=== PATIENT | male | born 1965 | race Caucasian/White ===

== ENCOUNTER 2018-05-30 11:27 | Inpatient (IN) ==
[2018-05-30] MEDS ORDERED: ASPIRIN PO ONE (11:54)
[2018-05-30] MEDS ORDERED: SOLU-MEDROL IV ONE (11:56)
--- NOTE | 2018-05-30 12:40 | EKG Report ---
Test Performed on : 05/30/2018 11:49:45 AM Test Reason : sob Blood Pressure : / mmHG Vent. Rate : 096 BPM Atrial Rate : 096 BPM P-R Int : 116 ms QRS Dur : 088 ms QT Int : 348 ms P-R-T Axes : 078 084 045 degrees QTc Int : 439 ms Normal sinus rhythm. Normal ECG When compared with ECG of 28-MAY-2018 18:53, (Unconfirmed) Nonspecific T wave abnormality no longer evident in Inferior leads Unconfirmed Result
--- NOTE | 2018-05-30 12:46 | Diag Imaging Result Doc PS360 ---
CHEST-PORTABLE - 05/30/2018 INDICATION: sob/cp COMPARISON: None FINDINGS: The lungs are clear. Heart size is normal. No pneumothorax or pleural effusion. Stable small calcified granulomas in the lateral left lung. IMPRESSION: Negative exam. Electronically signed by Bartolo Lopes 05/30/2018 12:44 PM
[2018-05-30 13:08] LABS: BASO# 0.02 X1000 (0.0-0.2); BASO% 0.2 % (0.0-0.8); EOS# 0.15 X1000 (0.0-0.7); EOS% 1.2 % (0.0-10.0); HEMATOCRIT 29.1 % (42.0-52.0); HEMOGLOBIN 8.6 g/dL (14.0-18.0); IMM GRAN# 0.04 X1000 (0.0-0.04); IMM GRAN% 0.3 % (0.0-0.5); LYMPH# 1.12 X1000 (1.2-3.4); MCH 20.4 PG (27-31); MCHC 29.6 g/dL (33-37); MCV 69.1 FL (81-99); MONO# 1.16 X1000 (0.11-0.59); MONO% 9.3 % (1.7-9.3); MPV 9.6 FL (7.4-10.4); NEUT# 9.94 X1000 (1.4-6.5); PLT 473 X1000 (130-400); RBC 4.21 XMIL (4.7-6.1); RDW 19.6 % (11.5-14.5); WBC 12.43 X1000 (4.8-10.8)
[2018-05-30 13:29] LABS: AGAP 12; ALB/GLOB RATIO 1.3; ALBUMIN 3.6 g/dL (3.5-5.0); ALKALINE PHOSPHATASE 93 U/L (32-122); BUN 10 mg/dL (8-22); CALCIUM 8.5 mg/dL (8.8-10.2); CHLORIDE 105 mmol/L (98-107); CK PROFILE 90 U/L (24-204); COSMO 281; CREATININE 0.6 mg/dL (0.7-1.2); ESTIMATED GFR > 60; GLUCOSE 77 mg/dL (70-104); GOT 13 U/L (10-34); GPT 13 U/L (10-44); POTASSIUM 3.7 mmol/L (3.5-5.1); SODIUM 142 mmol/L (136-145); TCO2 25 mmol/L (25-35); TOTAL BILIRUBIN 0.28 mg/dL (0.20-1.00); TOTAL PROTEIN 6.4 g/dL (6.3-8.3)
--- NOTE | 2018-05-30 14:13 | PROVIDER DOCUMENTATION ---
This chart was entered by Debra Mendez Scribe, acting as scribe for Cherise Morris MD. HPI-Respiratory General - General Chief Complaint: Shortness of Breath Stated Complaint: SOB Time Seen by Provider: 05/30/18 11:46 Source: patient Allergies/Adverse Reactions: Patient Allergies Allergy/AdvReac Type Severity Reaction Status Date / Time aspirin AdvReac gi upset Verified 05/06/18 13:55 Home Medications: Home Medication List Medication Instructions Recorded Confirmed Last Taken Type Albuterol Sulfate [Albuterol 18 gm IH Q4H PRN 03/01/18 05/20/18 05/06/18 History Sulfate Hfa] Acetaminophen with Codeine 1 ea PO Q4H PRN PRN #12 tab 05/06/18 05/20/18 Unknown Rx [Tylenol with Codeine #3] Albuterol Sulfate Inhaler 2 puff INH Q6H PRN PRN #1 inhaler 05/19/18 05/20/18 Unknown Rx [Ventolin Hfa] D-Methorphan/P-Epd/Bpm [Bromfed Dm 5 ml PO Q4H PRN #120 ml 05/19/18 05/20/18 Unknown Rx Liquid] Prednisone 20 mg PO DIRECTED #18 tab 05/19/18 05/20/18 Unknown Rx Levofloxacin [Levaquin] 750 mg PO DAILY #10 tab 05/26/18 Unknown Rx Azithromycin [Zithromax Z-Kevin] 250 mg PO DIRECTED #1 pkg 05/27/18 Unknown Rx - History of Present Illness-Resp Nature of Presenting Problem: Patient is a 52 year old male who presents to the ED with shortness of breath and cough. States symptoms have gradually worsened since being in the ED last. History of COPD. States has had multiple rounds of antibiotics, steroids, nebulizers and inhalers with no relief of symptoms. Quality of Pain: reports: tightness Severity in ED: reports: mild Onset/Duration: reports: gradual Timing: reports: still present, getting worse Cough Quality/Degree: reports: moderate, productive cough Episode Frequency: occasional episodes Current Respiratory Medication Therapy: Initiated see nurses note Associated Symptoms: reports: cough, shortness of breath Similar Symptoms Previously?: Yes Recently seen or treated by another doctor?: Yes Review of Systems - Adult - REVIEW OF SYSTEMS - ADULT Constitutional: reports: no symptoms reported. denies: chills, fever, fatique Eyes: reports: no symptoms reported Ears, Nose, Mouth & Throat: reports: no symptoms reported Cardiovascular: reports: no symptoms reported. denies: chest pain, palpitations, syncope Respiratory: reports: cough, shortness of breath. denies: wheezing Gastrointestinal: reports: no symptoms reported Genitourinary: reports: no symptoms reported Musculoskeletal: reports: no symptoms reported Integumentary: reports: no symptoms reported Neurological: reports: no symptoms reported Psychiatric: reports: no symptoms reported Endocrine: reports: no symptoms reported Hematologic/Lymphatic: reports: no symptoms reported Allergic/Immunologic: reports: no symptoms reported All Other Systems: Reviewed and Negative Past History - Adult - PAST MEDICAL HISTORY-ADULT Review of Records: reports: Nursing Assessment Review, Medications Reviewed, Social history reviewed & non-contributory. Major Childhood Illnesses: reports: denies history Cardiovascular: reports: denies history Respiratory: reports: asthma, COPD, lung disease Gastrointestinal: reports: GERD, hepatitis (C) Obstetrical/Gynecological: reports: denies history Genitourinary: reports: denies history Musculoskeletal: reports: denies history Neurological: reports: denies history Psychiatric: reports: denies history Endocrine/Immune: reports: denies history, other (hepatitis C) Other Conditions: reports: denies history - PRIOR SURGERIES/PROCEDURES Surgical/Procedure History: reports: reviewed, not pertinent, orthopedic (extremity) - IMMUNIZATION STATUS Childhood Immunizations: See Nurse Assessment Flu Vaccine: See Nurse Assessment - FAMILY HISTORY Family History: reviewed, not pertinent - SOCIAL HISTORY Smoking: cigarettes, less than 1 pack/day Provider spent 3-5 mins advising pt. on dangers of tobacco.: Discussed manners to quit use, and f/u contacts for add'l counseling. Substance Use: alcohol Alcohol Use Frequency: every day Physical Exam-General - PHYSICAL EXAM-ADULT Initial Vital Signs Reviewed: Yes - CONSTITUTIONAL General Appearance: alert, mild distress. negative: anxious, lethargic - HEAD, EARS, NOSE, MOUTH & THROAT HENMT: other (dry mucous membranes). negative: moist mucous membranes, angioedema - CARDIOVASCULAR Cardiovascular: normal peripheral pulses, tachycardia - GASTROINTESTINAL (ABDOMEN) Abdominal Exam: normal bowel sounds, non tender, soft. negative: guarding, rebound - MUSCULOSKELETAL Extremity: non-tender, normal inspection. negative: erythema, swelling - SKIN Integumentary: normal color, normal turgor, warm/dry. negative: cyanosis, jaundice - PSYCHIATRIC Psych/Mental Status: normal mood/affect, oriented x 3. negative: anxious, paranoid Progress - PLAN OF CARE/RESULTS Progress/Plan/Lab Results: Vital Signs - 8 hr 05/30/18 11:29 05/30/18 11:43 05/30/18 11:50 Temperature 98.9 F Pulse Rate 112 H 103 H 99 H Respiratory Rate 30 H 27 H 30 H Blood Pressure 147/84 O2 Sat by Pulse Oximetry 95 100 100 05/30/18 12:00 Temperature Pulse Rate 98 H Respiratory Rate 26 H Blood Pressure O2 Sat by Pulse Oximetry 100 05/30/18 14:35 Stool Occult Blood (JOI) - Final Stool Laboratory Results - last 24 hr 05/30/18 05/30/18 05/30/18 12:15 12:15 12:15 WBC 12.43 H RBC 4.21 L Hgb 8.6 L Hct 29.1 L MCV 69.1 L MCH 20.4 L MCHC 29.6 L RDW Std Deviation 19.6 H Plt Count 473 H MPV 9.6 Immature Gran % (Auto) 0.3 Neut % (Auto) 80.0 H Lymph % (Auto) 9.0 L [place] % (Auto) 9.3 Eos % (Auto) 1.2 Baso % (Auto) 0.2 Immature Gran # (Auto) 0.04 Neut # (Auto) 9.94 H Lymph # (Auto) 1.12 L [place] # (Auto) 1.16 H Eos # (Auto) 0.15 Baso # (Auto) 0.02 Sodium 142 Potassium 3.7 Chloride 105 Carbon Dioxide 25 Anion Gap 12 BUN 10 Creatinine 0.6 L Estimated GFR/1.73 m2 > 60 BUN/Creatinine Ratio 17 Glucose 77 Calculated Osmolality 281 Calcium 8.5 L Total Bilirubin 0.28 AST 13 ALT 13 Alkaline Phosphatase 93 Creatine Kinase 90 Troponin T < 0.010 Total Protein 6.4 Albumin 3.6 Globulin 2.8 Albumin/Globulin Ratio 1.3 Plasma Lactate 05/30/18 12:15 WBC RBC Hgb Hct MCV MCH MCHC RDW Std Deviation Plt Count MPV Immature Gran % (Auto) Neut % (Auto) Lymph % (Auto) [place] % (Auto) Eos % (Auto) Baso % (Auto) Immature Gran # (Auto) Neut # (Auto) Lymph # (Auto) [place] # (Auto) Eos # (Auto) Baso # (Auto) Sodium Potassium Chloride Carbon Dioxide Anion Gap BUN Creatinine Estimated GFR/1.73 m2 BUN/Creatinine Ratio Glucose Calculated Osmolality Calcium Total Bilirubin AST ALT Alkaline Phosphatase Creatine Kinase Troponin T Total Protein Albumin Globulin Albumin/Globulin Ratio Plasma Lactate 1.3 Orders Category Date Time Status Cardiac Monitoring DIRECTED Care 05/30/18 11:54 Active Oxygen Therapy- ED Nursing DIRECTED Care 05/30/18 11:54 Active Saline Loc NOW Care 05/30/18 11:54 Active CHEST-PORTABLE [RAD] Stat Exams 05/30/18 11:56 Completed BLOOD CULTURE [BLDCUL] Stat Lab 05/30/18 12:15 Results CBC WITH ELECTRONIC DIFF [HEME] Stat Lab 05/30/18 12:15 Completed CK PROFILE [SP CHEM] Stat Lab 05/30/18 12:15 Completed COMPREHENSIVE METABOLIC PANEL [CHEM] Stat Lab 05/30/18 12:15 Completed LACTATE, PLASMA [CHEM] Stat Lab 05/30/18 12:15 Completed Stool [OCCULT BLOOD SCREENING] [STOOL] Stat Lab 05/30/18 14:35 Completed TROPONIN T Stat Lab 05/30/18 12:15 Completed Aspirin Med 05/30/18 11:54 Discontinued 325 mg PO NOW ONE Methylprednisolone Sod Succ [Solu-Medrol] Med 05/30/18 11:56 Discontinued 125 mg IV NOW ONE CP/SOB/Palp >45 yrs of Age Stat Oth 05/30/18 11:54 Ordered EKG [EKG] Stat Ther 05/30/18 11:54 Draft Result Diagrams: 05/30/18 12:15 05/30/18 12:15 - EKG 1 Time of EKG reading by physician:: 11:49 EKG Read and Signed by:: Cherise Morris EKG Interpretation (*Must complete 3 of following elements*): Normal Rate: 96 Rhythm: normal sinus rhythm [place]: normal QRS: normal MA Interval: normal ST Wave: normal Comments: normal ECG - XRAY 1 XRAY Study: Chest Impression: See EMR Report (Signed CHEST-PORTABLE - 05/30/2018 INDICATION: sob/cp COMPARISON: None FINDINGS: The lungs are clear. Heart size is normal. No pneumothorax or pleural effusion. Stable small calcified granulomas in the lateral left lung. IMPRESSION: Negative exam. Electronically signed by Bartolo Lopes 05/30/2018 12:44 PM 05/30/18 1244 Interpreting Physician: Bartolo Lopes MD Dictated Date/Time: 05/30/18 1244 cc: Cherise Morris MD; Luna Moon MD) - CONSULTS/PCP/HOSPITALIST Notification #1 *Consult/PCP/Hospitalist*: JEANNINE Vazquez for Hospitalist Time Discussed: 15:36 (Dr. Gonzalez accepted admit) Reason/Comments: Dr. Morris consulted with Taylor about patient. Consult Disposition: Admit Departure - Departure Date of Disposition Decision: 05/30/18 Time of Disposition Decision: 15:39 DIAGNOSIS: COPD exacerbation, Anemia Disposition: ADMITTED INPATIENT 09 Certified Medical Emergency: Emergent Condition: Stable Referrals and Follow-Ups: Luna Moon MD [Primary Care Provider] - - Critical Care Note This patient required my direct & personal management of CC.: No Attestation - Physician/ FRANK Attestation The physician spent face to face time with patient:: Yes Advanced Practice Provider documentation review:: Supervising physician onsite and consulted in the evaluation and care of this patient. The physician did have a face to face encounter with the patient. This chart was documented by the indicated scribe, (Debra Mendez, Cesar) and accurately reflects the services I performed and decisions made by me, Cherise Morris MD, as attested by the provider's signature.
--- NOTE | 2018-05-30 17:04 | HISTORY AND PHYSICAL ---
Mr. Taylor is a 52-year-old. He has no primary care physician. He presented today short of breath, coughing, fever, chills for a couple days. He says he does not have a home, he is living on [address]. He has had a productive cough. He has some pleuritic chest discomfort. PAST MEDICAL HISTORY: Extensive history of drug use and abuse I think as well as alcohol, using IV heroin, IV methamphetamine. Last admission or his admission in October he had swollen arm we felt painful right arm. He has chronic hepatitis C, COPD, chronic esophageal reflux, do not know of any surgical history. FAMILY HISTORY: He does not report any family history in past medical reports. Does not report any cardiac or renal or COPD. SOCIAL HISTORY: He has no home, living on the street. He says he quit drinking back in March but then he said he is drinking some. He smokes a pack a day. He has a history of using marijuana and cocaine and ice as often as he can. REVIEW OF SYSTEMS: He is not sure whether he has had any weight gain or loss but he does report fever and chills.Respiratory: Increased cough and increased dyspnea. Cardiovascular: He does not report any chest pain or palpitations. GI and : Has a history of chronic hepatitis C, I am not sure if it has ever been treated or addressed. He has not report any visible blood in the bowels or urine. Not complaining of abdominal pain at this time. Endocrinologic/hematologic: No know of any history. Musculoskeletal/Neurologic: No focal changes but just does not feel good in general. It is not clear to me whether he is supposed to be on oxygen or not but he apparently has not been on oxygen, not taking any of his medications. PHYSICAL EXAM: In the emergency room temperature 98.9 degrees, pulse 98, respirations 26, blood pressure 147/84. Pupils are equal. Oral and nasal mucosa is moist. Conjunctiva pink. Sclerae clear. No cervical or supraclavicular adenopathy. Carotid, radial, femoral pulses 2+ and symmetrical. LUNGS: With scattered rhonchi. He has frequent coughing sounds like a productive cough. Did not look at the sputum. CARDIOVASCULAR: Regular rhythm and rate without murmur or S3. PMI nondisplaced. ABDOMEN: Soft, nondistended. No organomegaly. NECK: Supple. No thyromegaly. I did not appreciate any sinus tenderness. EXTREMITIES: No edema. SKIN: Warm and dry. Did not see any rashes on the skin or oral nasal mucosa. LAB: White count 12,430, hematocrit 29, hemoglobin 8.6, MCV is 69. Sodium 142, potassium 3.7, chloride 105, bicarb 25, BUN 10, creatinine 0.6, blood sugar 77, AST 13, ALT was 13, total bilirubin 0.28, albumin was 3.6. Did stool for blood and it was negative. Did check a chest x- ray negative exam. Lungs are clear. Heart size normal. No pneumothorax. No pleural effusions. Stable small calcified granuloma in the lateral left lung. His lab work sodium 142, potassium 3.7, chloride 105, BUN 10, creatinine 0.6. We need to check a urine drug screen. ASSESSMENT AND PLAN: 1. Sounds like acute bronchitis, bronchial irritation, underlying chronic obstructive pulmonary disease. He is living on the street. I guess we need to probably check for atypical infections as well. My plan is to put him on ceftriaxone 1 g daily, give him some Solu- Medrol, will load him with 125 mg and will give him 60 mg IV q.8, will give duo nebs for beta agonist for bronchodilation and will put him on a steroid inhaler using Advair 250/50 one puff twice a day. I will put him on some guaifenesin ER 1200 mg twice a day to thin the mucus. 2. I am not sure what illicit drugs he is using right now and so we will check a urine drug screen, alcohol level entertaining the possibility of withdrawals or even delirium tremens. 3. Hepatitis C. We need to look at his records and see if this has ever been addressed or treated. I guess we ought to check hepatitis C viral load and do another hepatitis profile, check for B as well and we will see if any of that is going on. 4. Will kind of evaluate how he is doing with his nutrition. One of the big things is what is our discharge planning for him. He has no home and whether he will be able to find some place where he can get some care, whether he will need to pursue some rehab. I will get social workers involved. Looking at his medications at home taking Tylenol No. 3s or at least he was, he was taking azithromycin, taking Levaquin, is on prednisone 20 mg a day, so I guess we ought to check a cortisol level in the morning to see if he is adrenal suppressed, will have him on Solu-Medrol, maybe we will go ahead and draw a cortisol level now because will be having him on Solu-Medrol and just see what his cortisone level is. cc: Kvng Gonzalez MD
[2018-05-30] MEDS ORDERED: ZOFRAN IV PRN (17:35)
[2018-05-30] MEDS ORDERED: LEVAQUIN 500 MG/D5W 500 MG/100 ML IVPB IV SCH (17:35)
[2018-05-30] MEDS ORDERED: DUONEB (A & A) INH PRN (17:35)
[2018-05-30 18:29] LABS: ALLEN TEST YES; BE 0.9 mmoll (-3.0-3.0); BLOOD TYPE ARTERIAL; HCO3-(ACT) 25.6 mmoll (20.0-26.0); METHB 1.1 % (0.0-1.5); O2(CT) 12.4 mL/dL (15.0-23.0); O2HB 93.1 % (95.0-99.0); PCO2(98.6) 38 mmHg (35-45); PO2(98.6) 66 mmHg (60-100); SAMPLE BLOOD; SAO2 96.5 % (95.0-100.0); THB 9.4 g/dL (11.5-17.4); pH(98.6) 7.43 (7.35-7.45)
[2018-05-30 18:30] LABS: MODALITY ROOM AIR
[2018-05-30] MEDS: ADVAIR 250/50 DISKUS INH SCH (19:30)
[2018-05-30] MEDS: DUONEB (A & A) INH SCH ×2 (19:30→22:47)
[2018-05-30] MEDS: ROCEPHIN 1 GM in NS 50 ML IV SCH (20:35)
[2018-05-30] MEDS: SOLU-MEDROL IV SCH (20:35)
[2018-05-30] MEDS: MUCINEX PO SCH (20:35)
[2018-05-30] MEDS: DOXYCYCLINE PO SCH (20:35)
--- NOTE | 2018-05-30 20:47 | PULMONOLOGY CONSULTATION ---
DATE: 05/30/2018 REQUESTING PHYSICIAN: Dr. Gonzalez. REASON FOR CONSULTATION: 1. COPD. 2. Patient not improved in 8 emergency room visits. HISTORY OF PRESENT ILLNESS: Mr. Taylor is a 52-year-old male with COPD, ongoing tobacco use, polysubstance abuse, who has been to the emergency room 11 times this year for various reasons. The patient continues to smoke as outlined above. He blames his breathing problems on multiple different things, but not ongoing tobacco use. The patient was evaluated in the emergency room today complaining of cough and shortness of breath. He was admitted to the hospital for additional evaluation and treatment. PAST MEDICAL HISTORY: Problem list: 1. History of hepatitis C. Viral loads were checked and negative 06/20/2017 and 11/18/2017. 2. COPD, without quantification. 3. Polysubstance abuse with previous screenings revealing methamphetamines, amphetamines, cocaine, cannabinoids, barbiturates. Most recent testing done 05/28/2018 is positive for amphetamine and cannabis. He reports that people slip drugs into his food and drink. 4. History of gastroesophageal reflux disease. 5. History of right wrist infection requiring irrigation and debridement in October 2017, related to intravenous drug use. SOCIAL HISTORY: Patient continues to use multiple different drugs and tobacco as per above. He reports he is homeless. FAMILY HISTORY: Noncontributory to current presentation. REVIEW OF SYSTEMS: Reveals a well-developed, well-nourished male who gives circuitous answers to all questions asked. He has mild work of breathing. PHYSICAL EXAMINATION: Vital Signs: BP 125/66, heart rate 87, respiratory rate 26, oxygen saturation 98% on room air. HEENT: Pupils are equal and reactive. Oropharynx is clear. Neck: Supple. Chest: Reveals scattered wheezing bilaterally. Cardiac: Distant heart sounds. Normal S1, normal S2. Abdomen: Soft and without hepatosplenomegaly. Extremities: Without edema. LABORATORIES: White blood count 12.4, hemoglobin 8.6, MCV is low at 69, platelet count 473,000. Arterial blood gas: pH 7.43, pCO2 38, PO2 of 66. IMPRESSION: A 52-year-old with: 1. COPD exacerbation. 2. Ongoing tobacco use. 3. Dyspnea. 4. Progressive decrease in MCV, consistent with a progressive microcytic anemia. RECOMMENDATIONS: 1. Evaluate heart function and rule out pulmonary hypertension with an echocardiogram. 2. Obtain CT scan of the thorax to rule out endobronchial lesions to explain his progressive dyspnea, although this most likely represents a COPD exacerbation. 3. Recommend iron studies as you are doing. He may require outpatient evaluation of the GI tract. 4. Strongly encourage the patient to discontinue tobacco and drug use. 5. His long-term prognosis is poor with his ongoing drug use pattern. cc: Beau Navarro MD MTDD
--- NOTE | 2018-05-30 20:56 | Diag Imaging Result Doc PS360 ---
EXAM: CT THORAX W/CONTRAST HISTORY: dyspnea TECHNIQUE: CT chest with intravenous contrast COMPARISON: None. FINDINGS: No pleural effusions. No cardiomegaly. No thoracic aortic aneurysm or dissection. No enlarged lymph nodes. There is a left lower lobe granuloma. Prominent emphysematous changes. No consolidation. Tiny faint nonspecific nodular densities in the lower lungs IMPRESSION: 1.Severe emphysema 2.Tiny nonspecific nodular densities/infiltrates in the lower lungs This exam was performed using automated exposure control, adjustment of mA or kV according to patient size, and/or use of iterative reconstruction technique. Electronically signed by Erik Davis 05/30/2018 8:53 PM
[2018-05-30 21:27] LABS: UR AMPHETAMINES QUAL NONE DETECTED (NONE DETECT); UR BARBITUATES QUAL NONE DETECTED (NONE DETECT); UR BENZODIAZEPIN QUAL NONE DETECTED (NONE DETECT); UR CANNABINOIDS QUAL NONE DETECTED (NONE DETECT); UR COCAINE QUAL PRESUMPTIVE POSITIVE (NONE DETECT); UR METHADONE QUAL NONE DETECTED (NONE DETECT); UR OPIATES QUAL NONE DETECTED (NONE DETECT); UR OXYCODONE QUAL NONE DETECTED (NONE DETECT); UR PCP QUAL NONE DETECTED (NONE DETECT)
[2018-05-31] MEDS: SOLU-MEDROL IV SCH ×3 (03:30→22:06)
[2018-05-31] MEDS: DUONEB (A & A) INH SCH ×6 (03:30→23:35)
[2018-05-31] MEDS: PRILOSEC PO SCH (06:17)
[2018-05-31] MEDS: ADVAIR 250/50 DISKUS INH SCH ×2 (07:28→19:35)
[2018-05-31 07:46] LABS: BASO# 0.01 X1000 (0.0-0.2); BASO% 0.1 % (0.0-0.8); HEMATOCRIT 28.8 % (42.0-52.0); HEMOGLOBIN 8.5 g/dL (14.0-18.0); IMM GRAN# 0.03 X1000 (0.0-0.04); IMM GRAN% 0.3 % (0.0-0.5); LYMPH# 0.62 X1000 (1.2-3.4); LYMPH% 5.6 % (20.5-51.1); MCH 20.5 PG (27-31); MCHC 29.5 g/dL (33-37); MCV 69.4 FL (81-99); MONO# 0.19 X1000 (0.11-0.59); MONO% 1.7 % (1.7-9.3); MPV 9.6 FL (7.4-10.4); NEUT# 10.27 X1000 (1.4-6.5); NEUT% 92.3 % (42.2-75.2); PLT 476 X1000 (130-400); RBC 4.15 XMIL (4.7-6.1); RDW 20.1 % (11.5-14.5); WBC 11.12 X1000 (4.8-10.8)
[2018-05-31 08:13] LABS: AGAP 14; ALB/GLOB RATIO 1.2; ALBUMIN 3.6 g/dL (3.5-5.0); ALKALINE PHOSPHATASE 91 U/L (32-122); BUN 10 mg/dL (8-22); CALCIUM 8.7 mg/dL (8.8-10.2); CHLORIDE 104 mmol/L (98-107); COSMO 285; CREATININE 0.6 mg/dL (0.7-1.2); ESTIMATED GFR > 60; GLUCOSE 189 mg/dL (70-104); GOT 12 U/L (10-34); GPT 16 U/L (10-44); IRON SATURATION 4 %; POTASSIUM 3.5 mmol/L (3.5-5.1); SODIUM 141 mmol/L (136-145); TCO2 23 mmol/L (25-35); TIBC 312 ug/dL; TOTAL BILIRUBIN 0.15 mg/dL (0.20-1.00); TOTAL IRON 14 ug/dL (53-167); TOTAL PROTEIN 6.7 g/dL (6.3-8.3); UNBOUND IRON 298 ug/dL (112-346)
--- NOTE | 2018-05-31 08:21 | Diag Imaging Result Doc PS360 ---
EXAM: CHEST-PORTABLE HISTORY: short of breath TECHNIQUE: Chest single view COMPARISON: 05/30/2018 FINDINGS: The lungs are hyperexpanded. The heart is not enlarged. The vessels are not distended. The tiny infiltrate seen on recent CT are not identified on the plain film. No effusion identified. IMPRESSION: Emphysema Electronically signed by Erik Davis 05/31/2018 8:18 AM
[2018-05-31 08:29] LABS: FREE T4 1.32 ng/dL (0.93-1.70); TSH 0.21 uIUmL (0.27-4.20)
[2018-05-31 08:42] LABS: BANDS 6 % (0-1); LYMPHS 8 % (21-51); SEGS 86 % (42-75)
[2018-05-31 08:43] LABS: ANISOCYTOSIS 2+; HYPOCHROM 2+; POIKILOCYTOSIS 1+
[2018-05-31 08:44] LABS: SCHISTOCYTES OCCASIONAL
[2018-05-31] MEDS: MUCINEX PO SCH ×2 (09:20→22:06)
[2018-05-31] MEDS: DOXYCYCLINE PO SCH ×2 (09:20→22:07)
[2018-05-31] MEDS ORDERED: HALDOL IV PRN (14:59)
[2018-05-31] MEDS ORDERED: CYANOCOBALAMIN IM ONE (17:06)
--- NOTE | 2018-05-31 17:39 | PROGRESS NOTE ---
DATE: 05/31/2018 SUBJECTIVE: The patient is talking a mile a minute. He is very tangential in his thinking, really not sure. It is very hard to redirect. You asked him one question, and he wants to tell you about his custodial history and his drug history and how as a teenager, he was tricked into starting narcotics, taking narcotics. He may be confabulating, he may be withdrawing, difficult to say. OBJECTIVE: Vital signs: Blood pressure 121/74, heart rate of 86, respiratory rate 20, temperature 98 degrees 100% on room air. Cardiovascular: Regular rate and rhythm. Pulmonary: Bilateral breath sounds clear to auscultation. Gastrointestinal: Soft, nontender, nondistended. Bowel sounds are positive. LABORATORY DATA: White count 12, hemoglobin 8, hematocrit 29, platelets 473,000. ABG normal. Basic normal. UDS positive for cocaine, which is not surprising. PROBLEM LIST: 1. Chronic obstructive pulmonary disease (COPD)exacerbation. He has got a pretty severe COPD exacerbation. We will continue breathing treatments. I am going to wean a little bit of his steroids, although I think he still needs steroids because he is just so agitated, and I am not sure that is not encouraging his psychiatric disturbance, whatever it may be, or a combination of multiple issues. He still needs breathing treatments. He is on Levaquin and Rocephin; I am not sure if he needs both of those antibiotics. I think we probably can just leave him on the Rocephin. The Levaquin, the only reason I would be concerned about continuing that is because he is confused. Sometimes that has caused some confusion in patients, but typically more elderly patients. 2. Hepatitis C. I think he has had a hepatitis C test. His last hepatitis C viral load was in 2018 and was negative so I do not think he has got active hepatitis C. Now, he will always have positive hepatitis C antibody because of his history, but his hepatitis C DNA PCR was negative, and that was checked in May and October 2017 so I do not think we need to repeat that. Of course, he is still likely using IV drugs or illicit substances. He was positive for cocaine this admission. We will follow. 3. B12 deficiency. We will load him with B12 and start that. 4. I think he is also folate deficient so we will supplement that and follow. 5. He also says he had a melenic stool, so we are going to monitor for that. I do not see that this has been completed yet, so we will continue to monitor. DISPOSITION: Pending clinical status. cc: Tylor Mulligan MD
[2018-05-31] MEDS: SYMBICORT 160/4.5 MICROGM INHALER INH SCH (19:35)
[2018-05-31] MEDS: ROCEPHIN 1 GM in NS 50 ML IV SCH (20:07)
--- NOTE | 2018-05-31 20:15 | PULMONOLOGY PROGRESS NOTE ---
DATE: 05/31/2018 SUBJECTIVE: The patient's speech is slightly pressured, but he appears a little more calm than yesterday. He reports his breathing has slightly improved. OBJECTIVE: Vital Signs: The patient has been afebrile for the last 24 hours. Blood pressure 121/74, heart rate 86, respiratory rate 16, oxygen saturation 100%. HEENT: Pupils are equal and reactive. Oropharynx is clear. Neck: Is supple. Chest: Reveals wheezing on forced exhalation. Cardiac: S1-S2. Abdomen: Is soft and without hepatosplenomegaly. Extremities: Without edema. LABORATORIES: CT scan of the thorax reveals diffuse bilateral emphysema with tiny nonspecific nodular densities in the lung bases. Toxicology is positive for cocaine. Sodium 141, potassium 3.5, chloride 104, bicarbonate 23, BUN 10, creatinine 0.6. Vitamin B12 162. TSH is low with a normal free T4. IMPRESSION: A 52-year-old with 1. Chronic obstructive pulmonary disease. 2. Ongoing tobacco use. 3. Microcytic anemia. 4. B12 deficiency which is not typical for microcytic anemia. 5. Dyspnea. 6. Possible component of john. RECOMMENDATIONS: 1. Continue current antibiotic and steroid regimen. 2. Agree with B12 replacement. 3. Encourage smoking cessation. cc: Beau Navarro MD
[2018-06-01] MEDS: DUONEB (A & A) INH SCH ×6 (03:39→23:27)
[2018-06-01] MEDS: SOLU-MEDROL IV SCH ×3 (06:02→21:11)
[2018-06-01] MEDS: PRILOSEC PO SCH (06:02)
[2018-06-01 07:02] LABS: BASO# 0.02 X1000 (0.0-0.2); BASO% 0.1 % (0.0-0.8); HEMATOCRIT 29.8 % (42.0-52.0); HEMOGLOBIN 8.8 g/dL (14.0-18.0); IMM GRAN# 0.26 X1000 (0.0-0.04); IMM GRAN% 1.5 % (0.0-0.5); LYMPH# 1.17 X1000 (1.2-3.4); LYMPH% 6.6 % (20.5-51.1); MCH 20.3 PG (27-31); MCHC 29.5 g/dL (33-37); MCV 68.8 FL (81-99); MONO# 0.86 X1000 (0.11-0.59); MONO% 4.8 % (1.7-9.3); MPV 9.7 FL (7.4-10.4); NEUT# 15.55 X1000 (1.4-6.5); PLT 591 X1000 (130-400); RBC 4.33 XMIL (4.7-6.1); RDW 20.7 % (11.5-14.5); WBC 17.86 X1000 (4.8-10.8)
[2018-06-01] MEDS: ADVAIR 250/50 DISKUS INH SCH ×2 (07:10→19:44)
[2018-06-01] MEDS: SYMBICORT 160/4.5 MICROGM INHALER INH SCH ×2 (07:17→19:44)
[2018-06-01 07:32] LABS: BANDS 4 % (0-1); LYMPHS 4 % (21-51); MONO 2 % (1-9)
[2018-06-01 07:39] LABS: ANISOCYTOSIS 2+; HYPOCHROM 2+; MYELOCYTES 2 %; SEGS 88 % (42-75)
[2018-06-01 07:40] LABS: MICROCYTOSIS 2+; POIKILOCYTOSIS 2+
[2018-06-01 07:44] LABS: ALB/GLOB RATIO 1.5; ALBUMIN 3.8 g/dL (3.5-5.0); ALKALINE PHOSPHATASE 99 U/L (32-122); GOT 9 U/L (10-34); GPT 15 U/L (10-44); TOTAL PROTEIN 6.3 g/dL (6.3-8.3)
[2018-06-01 07:49] LABS: DIRECT BILIRUBIN < 0.10 mg/dL (0.00-0.20); TOTAL BILIRUBIN < 0.15 mg/dL (0.20-1.00)
[2018-06-01] MEDS: MUCINEX PO SCH ×2 (09:36→21:20)
[2018-06-01] MEDS: DOXYCYCLINE PO SCH ×2 (09:36→21:20)
[2018-06-01] MEDS: VITAMIN B-12 PO SCH (09:36)
[2018-06-01 14:49] LABS: HEPATITIS PROFILE ACUTE SEE COMMENTS
--- NOTE | 2018-06-01 16:20 | ECHO REPORT ---
ORDER DATE: 05/31/2018 INTERPRETING PHYSICIAN: Roberto Woods MD ECHOCARDIOGRAPHIC MEASUREMENTS: Interventricular septum 0.9 cm. Left ventricular posterior wall 0.9 cm. Diastolic diameter 5.0 cm. Left ventricular systolic diameter 2.8 cm. Left atrium 3.1 cm. Aorta 3 cm. SUMMARY OF THE 2-DIMENSIONAL IMAGING: Aortic valve leaflets were trileaflet. Pulmonic valve was normal. Tricuspid valve was normal. Mitral valve was normal. Normal left ventricular cavity size. Estimated ejection fraction of 70%. There is trace to mild mitral regurgitation. Mild tricuspid regurgitation. Peak velocity across the tricuspid valve was 2.9 m/sec. Pulmonary artery systolic pressure of 44 mmHg. Peak velocity across the aortic valve less than 2 m/sec. By Doppler studies, there is no aortic stenosis or regurgitation. There is no pericardial effusion. No obvious intracardiac mass or thrombus seen. cc: MD Beau Alfaro MD
--- NOTE | 2018-06-01 19:43 | PULMONOLOGY PROGRESS NOTE ---
DATE: 06/01/2018 SUBJECTIVE: The patient reports ongoing shortness of breath. OBJECTIVE: Vital Signs: The patient has been afebrile for the last 24 hours. Blood pressure 129/66, heart rate 107, respiratory rate 17, oxygen saturation 98%. HEENT: Pupils are equal and reactive. Oropharynx is clear. Neck: Supple. Chest: Scattered wheezing bilaterally. Cardiac: S1, S2. Abdomen: Scaphoid and soft. Extremities: Without edema. IMPRESSION: The patient is a 52-year-old with: 1. Chronic obstructive pulmonary disease exacerbation. 2. Ongoing tobacco use, along with polysubstance abuse. 3. Microcytic anemia. 4. B12 deficiency. 5. Dyspnea. RECOMMENDATIONS: 1. Continue steroids, antibiotics, and nebulizer regimen. 2. Smoking cessation has been discussed and recommended. cc: Beau Navarro MD
[2018-06-01] MEDS: ROCEPHIN 1 GM in NS 50 ML IV SCH (20:50)
--- NOTE | 2018-06-01 22:55 | PROGRESS NOTE ---
DATE: 06/01/2018 SUBJECTIVE: The patient states that he is still having shortness of breath. Denies any chest pain or palpitations. Denies any fevers or chills currently. OBJECTIVE: He is afebrile. Temperature 97.9 degrees, pulse 91, respiratory 20, BP 127/88. General: The patient is awake, alert, in minimal respiratory distress. HEENT: Normocephalic. Neck supple. CV: Regular rate. No murmurs. Chest: Diffuse wheezing throughout. Mildly labored. Abdomen is soft, nondistended. Extremities: Moves all extremities. ASSESSMENT: 1. Chronic obstructive pulmonary disease with exacerbation. 2. History of hepatitis C. 3. Cocaine-positive urine drug screen. 4. B12 deficiency. 5. Leukocytosis. PLAN: The patient's white count actually went from 12 to 17. Certainly this could be due to the Solu-Medrol. Clinically overall he does appear to be improving. The patient states that he is breathing better. We will continue Rocephin and doxycycline. We will decrease Solu-Medrol to 40 IV q.8 and will follow. cc: Tyrone Moreno MD
[2018-06-02] MEDS: DUONEB (A & A) INH SCH ×6 (03:41→23:58)
[2018-06-02] MEDS: SOLU-MEDROL IV SCH ×2 (06:11→13:47)
[2018-06-02] MEDS: PRILOSEC PO SCH (06:11)
[2018-06-02] MEDS: SYMBICORT 160/4.5 MICROGM INHALER INH SCH ×2 (08:16→20:02)
[2018-06-02] MEDS: ADVAIR 250/50 DISKUS INH SCH ×2 (08:16→20:02)
[2018-06-02] MEDS: VITAMIN B-12 PO SCH (09:11)
[2018-06-02] MEDS: DOXYCYCLINE PO SCH ×2 (09:11→22:28)
[2018-06-02] MEDS: MUCINEX PO SCH ×2 (09:11→22:28)
[2018-06-02 11:34] LABS: BASO# 0.08 X1000 (0.0-0.2); BASO% 0.4 % (0.0-0.8); HEMATOCRIT 31.2 % (42.0-52.0); HEMOGLOBIN 9.3 g/dL (14.0-18.0); IMM GRAN# 0.82 X1000 (0.0-0.04); IMM GRAN% 4.2 % (0.0-0.5); LYMPH# 1.17 X1000 (1.2-3.4); LYMPH% 5.9 % (20.5-51.1); MCH 20.4 PG (27-31); MCHC 29.8 g/dL (33-37); MCV 68.4 FL (81-99); MONO# 1.47 X1000 (0.11-0.59); MONO% 7.4 % (1.7-9.3); MPV 9.2 FL (7.4-10.4); NEUT% 82.1 % (42.2-75.2); PLT 621 X1000 (130-400); RBC 4.56 XMIL (4.7-6.1); RDW 20.6 % (11.5-14.5); WBC 19.74 X1000 (4.8-10.8)
[2018-06-02 11:41] LABS: LYMPHS 7 % (21-51); SEGS 92 % (42-75)
[2018-06-02 11:42] LABS: AGAP 13; BUN 16 mg/dL (8-22); CALCIUM 9.2 mg/dL (8.8-10.2); CHLORIDE 107 mmol/L (98-107); COSMO 290; CREATININE 0.7 mg/dL (0.7-1.2); ESTIMATED GFR > 60; GLUCOSE 128 mg/dL (70-104); PHOSPHORUS 3.7 mg/dL (2.7-4.5); POTASSIUM 4.1 mmol/L (3.5-5.1); SODIUM 144 mmol/L (136-145); TCO2 24 mmol/L (25-35)
[2018-06-02 11:47] LABS: ANISOCYTOSIS 1+; MICROCYTOSIS 1+; SCHISTOCYTES OCCASIONAL; TARGET CELLS OCCASIONAL
[2018-06-02 11:48] LABS: OVALOCYTES 1+
[2018-06-02 11:49] LABS: POIKILOCYTOSIS 2+
[2018-06-02] MEDS: TYLENOL WITH CODEINE #3 PO PRN ×2 (12:39→21:23)
--- NOTE | 2018-06-02 22:20 | PROGRESS NOTE ---
DATE: 06/02/2018 INTERVAL HISTORY: I talked with the patient's primary care doctor on the phone who patient had seen once in the last 1 month, and he has established new primary care provider. Apparently, patient called primary care doctor's office in the morning time, and he sounded very frustrated, and he informed the primary care provider's office that he would want to shoot himself down because he was really frustrated. This was something that was conveyed to me by the primary care doctor on the phone. The patient is also having Braydon Luevano consult pending. Currently, the patient denies any chest pain. His shortness of breath is significantly better. He is very hyperoral, anxious, agitated and he has continuous thought process, and he is hyperverbal. OBJECTIVE: Vital signs: Currently vitals suggest temperature 98.1 degrees, pulse 106, respiratory rate 19, blood pressure 130/78, saturating 98% on 2 L nasal cannula. General: Not in any acute distress; however, he is very anxious and agitated. HEENT: Oral cavity is moist. Lungs: Air entry bilaterally equal. No wheeze, rhonchi or crackles. Cardiovascular: S1, S2 normal. No murmur or gallop. Abdomen: Soft, nontender. Extremities: No lower extremity edema. Neurologic: He is alert and oriented x3. Psychiatric: Evaluation is positive for tangentiality of thought process. His mood is labile, and he becomes angry and aggressive very frequently. He denies any hallucinations, suicidal or homicidal ideations. He says he never had thoughts of suicide or homicide even in the morning. He was just frustrated with his social situation. He does demonstrate repetitive behavior where he tries to read up some things on the papers. According to his nursing staff, he did have some delusions as well. LABORATORY DATA: Suggestive of leukocytosis, microcytic anemia, thrombocytosis. His electrolytes are unremarkable. Fecal occult blood test was negative. ASSESSMENT AND PLAN: 1. Acute chronic obstructive pulmonary disease exacerbation. 2. Chronic hepatitis C. 3. Cocaine abuse. 4. Vitamin B12 deficiency. 5. Iron deficiency. PLAN: Continue patient on intravenous ceftriaxone and p.o. doxycycline and methylprednisolone. I will try to taper dose to 40 mg of IV every 12 hours. He does have labile mood and mood swings with aggressive behavior. I will consult Braydon Luevano as I think he would be ready for potential discharge on p.o. steroids tomorrow. I will start him on iron supplementation for iron deficiency. Plan of care discussed with the patient. All of his questions have been answered. cc: Jose Gusman MD MTDD
[2018-06-02] MEDS: ROCEPHIN 1 GM in NS 50 ML IV SCH (22:27)
[2018-06-03] MEDS ORDERED: SOLU-MEDROL IV SCH (02:00)
[2018-06-03] MEDS: DUONEB (A & A) INH SCH ×2 (04:40→07:30)
[2018-06-03] MEDS: PRILOSEC PO SCH (06:08)
[2018-06-03 07:12] VITALS: BP 133/88
[2018-06-03] MEDS: SYMBICORT 160/4.5 MICROGM INHALER INH SCH (07:30)
[2018-06-03] MEDS: ADVAIR 250/50 DISKUS INH SCH (07:30)
[2018-06-03] MEDS ORDERED: ICAR-C PO SCH (09:00)
[2018-06-03 10:25] LABS: HCV BY PCR SEE COMMENTS
--- NOTE | 2018-06-04 12:37 | DISCHARGE SUMMARY ---
ADMISSION DATE: 05/30/2018 DISCHARGE DATE: 06/03/2018 DISPOSITION: The patient left and eloped. I could not see this patient on 06/03/18. DISCHARGE DIAGNOSES: 1. Acute chronic obstructive pulmonary disease exacerbation. 2. Chronic hepatitis C. 3. Cocaine abuse. 4. Vitamin B 12 deficiency. 5. Iron deficiency. 6. Severe anxiety and mood disorder with anger outburst OTHER DIAGNOSES: 1. Past history of intravenous drug use. 2. Past history of polysubstance use, including alcohol, methamphetamine. 3. Past history of chronic hepatitis C. 4. Past history of chronic obstructive pulmonary disease, chronic gastroesophageal reflux disease. PHYSICAL EXAMINATION: Vitals: As documented in the chart at 7 a.m. before elopement had a temperature of 98.4 degrees, pulse 100, respiratory rate 19, blood pressure 130/88, saturating 97% on room air. General: I could not perform physical examination. MEDICATION: During hospital admission, he was receiving intravenous steroids, albuterol ipratropium nebulization, p.o. doxycycline and intravenous ceftriaxone. SIGNIFICANT IMAGING DURING HOSPITALIZATION AND LABS: He had leukocytosis of 19,000, hemoglobin of 9.3, platelet of 621. He did have significant microcytosis. He had normal electrolytes and normal kidney function. IMAGING: During hospital admission, chest CT on June 02 had severe emphysema, tiny nonspecific nodular densities or infiltrates in the lower lungs. Echocardiogram had suggested ejection fraction of 70% without any obvious intracardiac mass or thrombus. HOSPITAL COURSE SUMMARY: Mr. Taylor is a 52-year-old man who was previously incarcerated and had history of polysubstance abuse and repeated ER visits. He came in with chief complaints of shortness of breath, cough, fever, chills for about 2 days duration. He states that he was homeless and he was living on the street. He also had pleuritic chest pain with expectoration. He was admitted for acute COPD exacerbation and was started on intravenous steroids and intravenous antibiotics. During hospital admission, his breathing status had improved and the plan was to change his intravenous steroids to p.o. steroids. He was continued on intravenous antibiotics. He was saturating well on room air. During hospital admission, he has had episodes of agitation, anxiety, and he was not complying with nursing care. He was also hyper oral. At one time, he called his primary care doctor's office and had expressed that he wanted to shoot himself down. However, on my evaluation, he denies any hallucination, suicidal or homicidal ideation. Considering patient's labile mood, Braydon Luevano consult was planned. However, on 06/03/2018 morning time, the patient eloped. It looks like he did not remove his IV line. He had unattached nuclear monitoring technician. TIME SPENT: Less than 30 minutes were spent in discharging this patient. cc: MD LORNA Boston
== END 2018-06-03 08:50 | disposition left against medical advice (07) | DRG 191 ==
LOC: ED 11:27 → SUATTDRO 16:58 → 3N 16:58
PROVIDERS: ATTEND Internal Medicine
CPT/HCPCS: 71010; 71045; 71260; 80048; 80053; 80074; 80076; 80101; 80301; 80307; 80324; 80345; 80346; 80353; 80358; 80361; 80365; 82270; 82272; 82533; 82550; 82607; 82728; 82746; 82805; 83540; 83550; 83605; 83735; 83992; 84100; 84439; 84443; 84484; 85025; 87040; 87522; 93005; 93306; 94640; 94761; 94799; 96374; 99285; A9270; G0431; G0434; G0479; G0480; J0696; J1956; J2920; J2930; J3420; Q9967

== ENCOUNTER 2018-10-14 20:42 | Inpatient (IN) ==
[2018-10-14] MEDS ORDERED: NS + KCL 20 MEQ 1,000 ML IV SCH (23:48)
--- NOTE | 2018-10-15 00:07 | HISTORY AND PHYSICAL ---
PRIMARY CARE PHYSICIAN: Dr. Moon. CHIEF COMPLAINT: Fall. HISTORY OF PRESENTING ILLNESS: A 53-year-old male with a history of asthma, COPD, hep C who, apparently, was going up a tree to get the ball that had gone up there. Somehow the limb broke and he fell down. He developed moderate amount of pain in his right hip region. He was brought to [facility]. His case was discussed with Orthopedics here, who recommended transfer for further treatment. At the time of my examination, patient had denied any headache, fever, chills, chest pain, shortness of breath, or weight changes, but complained of right hip pain. PAST MEDICAL HISTORY: Includes asthma, COPD, hepatitis C. PAST SURGICAL HISTORY: Right wrist surgery. ALLERGIES: Aspirin. CURRENT MEDICATIONS: He does not recall. Nursing staff will reconcile. SOCIAL HISTORY: A [id number] history of smoking. Admits to social alcohol use. Admits to illicit drugs, including marijuana and methamphetamine. FAMILY HISTORY: Positive for coronary artery disease in Mother and Father. REVIEW OF SYSTEMS: Fourteen-point review of system is as in HPI. Other systems negative. PHYSICAL EXAMINATION: GENERAL: Cooperative, friendly male. He is resting more comfortably now. VITAL SIGNS: Temperature 97.8 degrees, pulse 66, respiration 16, blood pressure 115/79. HEENT: Extraocular movements intact. PERRLA. NECK: No masses. CHEST: Scattered wheezes. CARDIOVASCULAR: Regular rate and rhythm. ABDOMEN: Soft. Positive bowel sounds. EXTREMITIES: Right hip tenderness. NEUROLOGIC: He is awake, alert, oriented x3. GENITOURINARY: No bladder distention. SKIN: Warm. LABORATORIES AND STUDIES: X-ray shows right femoral neck fracture. Sodium 136, potassium 2.7, chloride 98, CO2 is 23, BUN is 6, creatinine 0.7. Glucose 97. WBCs 5.2, hemoglobin 12, hematocrit 37.1, platelets 268,000. ASSESSMENT: This is a 53-year-old male with a history of asthma, chronic obstructive pulmonary disease, hepatitis C, who had presented to emergency department after he had a fall. Apparently, patient was going up a tree to fetch a ball that had gone up there, some how the limb broke any he landed on the ground. He was brought to [facility], where he had imaging done which did show a right femoral neck fracture. Due to lack of subspecialists care there, his case was discussed with Orthopedics here, who recommended transfer for further treatment. 1. Right femoral neck fracture. 2. Hypokalemia. 3. Chronic obstructive pulmonary disease. 4. Hepatitis C. PLAN: 1. We will admit patient to medical floor with telemetry. 2. We will keep patient NPO and give him medical pain control. 3. We will consult Orthopedics. 4. We will replace his potassium. Monitor his electrolytes. 5. Continue gentle hydration. 6. We will continue DuoNebs p.r.n. 7. We will obtain records regarding his hepatitis C. 8. Put patient on DVT prophylaxis, sequential compression devises. 9. Continue to follow and reassess, make further recommendation based on patient's clinical course. cc: Darryl Yanez MD MTDD
[2018-10-15] MEDS: ZOFRAN IV PRN ×3 (01:49→23:55)
[2018-10-15] MEDS: MORPHINE IV PRN ×2 (01:50→05:50)
[2018-10-15 06:06] LABS: BASO# 0.02 X1000 (0.0-0.2); BASO% 0.2 % (0.0-0.8); EOS# 0.11 X1000 (0.0-0.7); EOS% 1.3 % (0.0-10.0); HEMATOCRIT 39.9 % (42.0-52.0); HEMOGLOBIN 12.9 g/dL (14.0-18.0); IMM GRAN# 0.03 X1000 (0.0-0.04); IMM GRAN% 0.4 % (0.0-0.5); LYMPH# 0.85 X1000 (1.2-3.4); LYMPH% 10.2 % (20.5-51.1); MCH 25.7 PG (27-31); MCHC 32.3 g/dL (33-37); MCV 79.6 FL (81-99); MONO# 0.53 X1000 (0.11-0.59); MONO% 6.3 % (1.7-9.3); MPV 10.2 FL (7.4-10.4); NEUT# 6.82 X1000 (1.4-6.5); NEUT% 81.6 % (42.2-75.2); PLT 242 X1000 (130-400); RBC 5.01 XMIL (4.7-6.1); RDW 20.5 % (11.5-14.5); WBC 8.36 X1000 (4.8-10.8)
[2018-10-15 06:31] LABS: AGAP 10; BUN 7 mg/dL (8-22); CALCIUM 8.3 mg/dL (8.8-10.2); CHLORIDE 102 mmol/L (98-107); COSMO 272; CREATININE 0.6 mg/dL (0.7-1.2); ESTIMATED GFR > 60; GLUCOSE 102 mg/dL (70-104); POTASSIUM 3.2 mmol/L (3.5-5.1); SODIUM 137 mmol/L (136-145); TCO2 25 mmol/L (25-35)
--- NOTE | 2018-10-15 06:46 | Diag Imaging Result Doc PS360 ---
EXAM: PELVIS HISTORY: Hip fracture TECHNIQUE: Pelvis single view COMPARISON: None. FINDINGS: There is a right femoral neck fracture. The femoral head remains in the acetabulum. Femoral shaft is rotated. IMPRESSION: Right femoral neck fracture. Electronically signed by Erik Davis 10/15/2018 6:44 AM
--- NOTE | 2018-10-15 06:48 | Diag Imaging Result Doc PS360 ---
EXAM: HIP 1 VIEW RIGHT HISTORY: Hip fracture TECHNIQUE: Right hip, two views COMPARISON: None. FINDINGS: There is an oblique fracture through the right femoral neck. Femoral shaft is rotated and superiorly placed. The femoral head remains in the acetabulum. IMPRESSION: Right femoral neck fracture. Electronically signed by Erik Davis 10/15/2018 6:46 AM
--- NOTE | 2018-10-15 06:50 | Diag Imaging Result Doc PS360 ---
EXAM: CHEST-1 VIEW HISTORY: pre-op TECHNIQUE: Chest single view COMPARISON: 09/01/2018 FINDINGS: The lungs are hyperexpanded the heart is not enlarged. The vessels are minimally distended. There are no infiltrates. No effusion identified. IMPRESSION: Mild vascular distention. Electronically signed by Erik Davis 10/15/2018 6:48 AM
[2018-10-15] MEDS ORDERED: DILAUDID IV ONE (07:22)
[2018-10-15] MEDS: DUONEB (A & A) INH PRN ×2 (07:38→11:16)
[2018-10-15] MEDS ORDERED: KLOR-CON PO SCH (10:45)
--- NOTE | 2018-10-15 12:24 | PROGRESS NOTE ---
DATE: 10/15/2018 INTERVAL HISTORY: Mr. Taylor was admitted overnight after he fell down from a branch of tree and had right-sided femoral neck fracture. SUBJECTIVE: He denies any complaints except pain at the right hip joint and right groin. He states he lives with his friend. He states he does not take any medicines at home. VITAL SIGNS: Currently, temperature 99.2 degrees, pulse 73, respiratory 22, blood pressure 100/73 saturating 97% on room air. PHYSICAL EXAMINATION: General: He is hungry, not in any acute distress, HEENT: Oral cavity is moist. Lungs: Air entry bilaterally equal. No wheeze, rhonchi, crackles, except mild end- expiratory wheezes. Cardiovascular: S1, S2 normal. No murmur, rub, or gallop. Abdomen: Soft, nontender. Extremities: His right lower extremity is shorter than left and slightly externally rotated. There is localized tenderness of the right groin region. His dorsalis pedis, posterior tibial pulses are intact. He is able to wiggle toes bilaterally. He has adequate capillary refilling. Neurologic: He is alert and oriented x3. LABORATORY DATA: Suggestive of microcytic anemia. Normal platelet count. Hypokalemia. IMAGING: Previously, hip x-ray had suggested right femoral neck displaced fracture. Chest x-ray had mild vascular distention. ASSESSMENT AND PLAN: 1. Right femoral neck displaced fracture. Continue pain management as per Orthopedic Surgery team recommendation for planned repair likely early next week. Continue MiraLAX to avoid constipation. 2. Hypokalemia. Currently being repleted. I will follow up with basic metabolic panel. 3. History of iron deficiency and vitamin B12 deficiency, anemia. Follow up daily blood counts and start him on iron and vitamin B12 supplementation. 4. Chronic obstructive pulmonary disease. Continue albuterol ipratropium nebulization and add budesonide formoterol. He is not in any acute exacerbation. 5. He does have prior history of chronic hepatitis C, prior history of intravenous drug use, polysubstance abuse, and chronic gastroesophageal reflux disease. 6. Disposition. I will continue to monitor patient inside the hospital. Plan of care discussed with him. His questions have been answered. cc: Jose Gusman MD
[2018-10-15] MEDS: DILAUDID IV PRN ×3 (12:44→23:54)
--- NOTE | 2018-10-15 14:28 | ORTHOPAEDICS CONSULTATION ---
DATE: 10/15/2018 CHIEF COMPLAINT: Right hip pain. HISTORY OF PRESENT ILLNESS: Patient is a 53-year-old male who is 1 day status post fall from a tree injuring his right hip. States that he went up the tree to get a ball and the limb broke fell to the ground developed pain, discomfort his right hip. He underwent evaluation [facility]. X-rays were obtained revealed right displaced femoral neck fracture. He subsequently transferred to [facility] for orthopedic evaluation. He denies loss of conscious. The patient does have some chronic underlying medical problems with asthma, COPD and hepatitis C. ALLERGIES: Aspirin. PAST MEDICAL HISTORY: Asthma, COPD, hepatitis C . PAST SURGICAL HISTORY: Irrigation debridement right wrist and right 5th finger. PHYSICAL EXAMINATION: Patient is awake, alert, cooperative with exam. His bilateral upper extremities have no significant tenderness to palpation, able actively elevate his arms, no significant discomfort range of motion shoulder, elbow, wrist . His left lower extremity has no palpable deformity on the hip, knee or ankle. His compartments are soft. Does have significant discomfort in the right hip pain with any gentle movement. Calf is soft. He has active dorsiflexion plantar flexion. X-rays did reveal right displaced femoral neck fracture. IMPRESSION: Right displaced femoral neck fracture. PLAN: At this point discussed treatment options with the patient. At this time, given the amount displacement, the patient would most benefit long-term with a total hip arthroplasty. All his questions were answered. He agrees to treatment plan. Will plan on total hip arthroplasty per Dr. Bautista on Wednesday. Risks, benefits discussed including risks anesthesia, , bleeding, infection, failure relieve pain, postop stiffness, nerve injury, blood clots, a dislocation and other imponderables. All questions were answered. cc: Jose Ray MD [facility]
[2018-10-15] MEDS: OXY IR PO PRN (15:10)
[2018-10-15] MEDS: DUONEB (A & A) INH SCH ×2 (16:00→19:44)
[2018-10-15] MEDS: VITAMIN B-12 PO SCH (16:13)
[2018-10-15] MEDS: FERROUS SULFATE PO SCH (16:13)
[2018-10-15] MEDS: KLOR-CON PO SCH ×2 (16:13→23:58)
[2018-10-15] MEDS: SYMBICORT 80/4.5 MICROGM INHALER INH SCH (19:44)
[2018-10-15] MEDS ORDERED: LOVENOX SUBQ ONE (22:00)
[2018-10-16] MEDS: DILAUDID IV PRN ×3 (03:49→18:02)
[2018-10-16] MEDS: ZOFRAN IV PRN (03:49)
[2018-10-16] MEDS: OXY IR PO PRN ×3 (05:00→20:04)
[2018-10-16 06:43] LABS: AGAP 11; BUN 8 mg/dL (8-22); CALCIUM 8.7 mg/dL (8.8-10.2); CHLORIDE 97 mmol/L (98-107); COSMO 267; CREATININE 0.6 mg/dL (0.7-1.2); ESTIMATED GFR > 60; GLUCOSE 142 mg/dL (70-104); POTASSIUM 3.9 mmol/L (3.5-5.1); SODIUM 133 mmol/L (136-145); TCO2 25 mmol/L (25-35)
[2018-10-16] MEDS: SYMBICORT 80/4.5 MICROGM INHALER INH SCH ×2 (07:30→19:45)
[2018-10-16] MEDS: DUONEB (A & A) INH SCH ×4 (07:30→19:45)
[2018-10-16] MEDS: FERROUS SULFATE PO SCH (08:11)
[2018-10-16] MEDS: VITAMIN B-12 PO SCH (08:11)
[2018-10-16] MEDS: MIRALAX PO SCH (08:12)
--- NOTE | 2018-10-16 08:32 | ORTHOPAEDICS PROGRESS NOTE ---
DATE: 10/16/2018 SUBJECTIVE: Patient is a pleasant, 53-year-old male who is 2 days status post a fall from a tree, sustaining a right displaced femoral neck fracture. He is currently resting comfortably. PHYSICAL EXAMINATION: The patient's right lower extremity has expected tenderness to palpation on the hip, tenderness with gentle movement. His calf is soft. He has active dorsiflexion and plantar flexion. LABORATORY DATA: His hemoglobin is 12.4. IMPRESSION: Right displaced femoral neck fracture. PLAN: At this point, we will plan on proceeding with a right total hip arthroplasty tomorrow per Dr. Bautista. Risks and benefits of surgery were explained including the risks of anesthesia, , bleeding, infection, failure to relieve pain, postop stiffness, dislocation, and other imponderables. All questions were answered. The patient agrees to the treatment plan. cc: Jose Ray MD
--- NOTE | 2018-10-16 15:22 | PROGRESS NOTE ---
DATE: 10/16/2018 INTERVAL HISTORY: No acute events overnight. He is eating his meal. He complains of some right- sided thigh pain but denies any new complaints. He states he lives with his friend in an apartment. VITALS: Currently, temperature 98.6 degrees, pulse 97, respiratory rate 20, blood pressure 110/71. He is saturating 90 to 95% on 2 L nasal cannula. PHYSICAL EXAMINATION: General: Does not appear in any acute distress. Oral cavity is moist. When he clears his throat, his air entry becomes bilaterally equal. No rhonchi or crackles. Mild end-expiratory wheezes. S1, S2 normal. No murmur, rub, or gallop. Abdomen: Soft, nontender. No lower extremity edema. He is able to wiggle both of his toes. There is localized right hip joint tenderness. ASSESSMENT AND PLAN: 1. Right femoral neck displaced fracture. Continue pain management as per orthopedic surgery team, enoxaparin for deep venous thrombosis prophylaxis, MiraLAX to avoid constipation. 2. Hypokalemia, now repleted. 3. History of iron and vitamin B12 deficiency anemia. Continue iron, vitamin B12 supplementation. 4. History of chronic obstructive pulmonary disease. Continue albuterol ipratropium nebulization and budesonide formoterol inhaler. He does have mild wheezing on examination but does not appear in any acute distress. 5. He does have prior history of chronic hepatitis C, prior history of intravenous drug use, polysubstance abuse, and chronic gastroesophageal reflux disease for which I will keep him on famotidine. 6. Disposition. Continue to monitor inside the hospital. Awaiting orthopedic surgery on Wednesday. Plan of care discussed with him. His questions have been answered. cc: Jose Gusman MD
[2018-10-16] MEDS: LOVENOX SUBQ SCH (18:08)
[2018-10-16] MEDS: PEPCID PO SCH (18:08)
[2018-10-17] MEDS: DILAUDID IV PRN ×2 (05:04→09:10)
[2018-10-17] MEDS: ZOFRAN IV PRN (05:04)
[2018-10-17 06:04] LABS: AGAP 8; BUN 8 mg/dL (8-22); CALCIUM 7.9 mg/dL (8.8-10.2); CHLORIDE 95 mmol/L (98-107); COSMO 257; CREATININE 0.6 mg/dL (0.7-1.2); ESTIMATED GFR > 60; GLUCOSE 119 mg/dL (70-104); POTASSIUM 3.7 mmol/L (3.5-5.1); SODIUM 128 mmol/L (136-145); TCO2 25 mmol/L (25-35)
--- NOTE | 2018-10-17 07:28 | ORTHOPAEDICS PROGRESS NOTE ---
DATE: 10/17/2018 SUBJECTIVE: The patient is a pleasant 53-year-old male who is 3 days status post fall from a tree sustaining a right displaced femoral neck fracture. Patient has no complaints this morning. PHYSICAL EXAMINATION: On physical exam, the right lower extremity continues with expected discomfort with palpation with gentle movement. Calf is soft. He is neurovascularly intact distally. LABORATORY DATA: His hemoglobin is 10.8. IMPRESSION: Right displaced femoral neck fracture. PLAN: At this point, the patient will undergo right total hip arthroplasty later today per Dr. Bautista. Risks and benefits of surgery were discussed and all questions were answered. The patient agrees with the treatment plan. cc: Jose Ray MD
[2018-10-17] MEDS: SYMBICORT 80/4.5 MICROGM INHALER INH SCH ×2 (07:29→19:08)
[2018-10-17] MEDS: DUONEB (A & A) INH SCH ×3 (07:29→19:07)
[2018-10-17] MEDS ORDERED: ROBINUL ONE (08:13)
[2018-10-17] MEDS ORDERED: QUELICIN (DOSE) ONE (08:13)
[2018-10-17] MEDS: FERROUS SULFATE PO SCH (09:13)
[2018-10-17] MEDS: PEPCID PO SCH (09:14)
[2018-10-17] MEDS: VITAMIN B-12 PO SCH (09:14)
[2018-10-17] MEDS: MIRALAX PO SCH (09:14)
[2018-10-17] MEDS ORDERED: FENTANYL ONE (13:14)
[2018-10-17] MEDS ORDERED: VERSED ONE (13:14)
[2018-10-17] MEDS ORDERED: XYLOCAINE-MPF 2% ONE (13:14)
[2018-10-17] MEDS ORDERED: DIPRIVAN 1% ONE (13:15)
[2018-10-17] MEDS ORDERED: DURAMORPH ONE (14:23)
[2018-10-17] MEDS ORDERED: TORADOL ONE ×2 (14:23→15:31)
[2018-10-17] MEDS ORDERED: NEOSPORIN G.U. IRRIGANT ONE (14:24)
[2018-10-17] MEDS ORDERED: EXPAREL 1.3% ONE (14:24)
[2018-10-17] MEDS ORDERED: SENSORCAINE 0.25%/EPI 1:200,000 ONE (14:24)
[2018-10-17] MEDS ORDERED: CYKLOKAPRON 1,000 MG/NS 1,000 MG/100 ML IVPB ONE (14:24)
[2018-10-17] MEDS ORDERED: SODIUM CHLORIDE 0.9% ONE (14:24)
[2018-10-17] MEDS ORDERED: KEFZOL 1 GM/D5W 1 GM/50 ML IVPB ONE (14:32)
--- NOTE | 2018-10-17 14:38 | PROGRESS NOTE ---
DATE: 10/17/2018 INTERVAL HISTORY: No acute events. The patient is still waiting to undergo surgery. He denies any complaints except pain. VITALS: Temperature 98.4 degrees, pulse 90, respiratory rate 18, blood pressure 110/64, he is saturating 92% on 2 L nasal cannula. PHYSICAL EXAMINATION: General: Does not appear in any acute distress. Oral cavity is moist. Air entry bilaterally equal. Mild end-expiratory wheeze. No rhonchi or crackles. S1, S2 normal. No murmur or gallop. Abdomen: Soft, nontender. No lower extremity edema. He is able to wiggle both of his toes. There is localized right hip joint tenderness. LABS: Suggestive of hemoglobin of 10.8. He does have mild hyponatremia, hypochloremia and normal kidney function. ASSESSMENT AND PLAN: 1. Right femoral neck displaced fracture after falling from a tree branch. Continue pain management as per orthopedic team, enoxaparin for DVT prophylaxis and MiraLAX to avoid constipation, vitamin D level have been ordered. He may need outpatient osteoporosis workup. 2. History of iron and vitamin B12 deficiency. Continue iron, vitamin B12 supplementation. 3. History of chronic obstructive pulmonary disease with active tobacco abuse, was counseled about not using tobacco products. Continue albuterol ipratropium nebulization, budesonide, formoterol inhaler. Does not appear to be in acute distress to suggest acute exacerbation. 4. Hypokalemia on presentation has resolved. He does have history of chronic hepatitis C and prior intravenous drug use as well as polysubstance abuse and incarceration. I will continue famotidine for his chronic GERD. 5. Disposition. Awaiting surgery today. Patient has Medicaid and depending on his functional status he may or may not need rehab. Plan of care discussed with patient. His questions have been answered. cc: Jose Gusman MD
[2018-10-17] MEDS ORDERED: ZOFRAN ONE (15:31)
[2018-10-17] MEDS ORDERED: DILAUDID ONE (15:43)
--- NOTE | 2018-10-17 17:27 | OPERATIVE NOTE ---
PROCEDURE DATE: 10/17/2018 PREOPERATIVE DIAGNOSIS: Right displaced femoral neck fracture. POSTOPERATIVE DIAGNOSIS: Right displaced femoral neck fracture. PROCEDURE: Right total hip arthroplasty for displaced femoral neck fracture using a DePuy Actis size 8 high offset stem with a +8.5 ceramic head, a 52 mm Gription acetabular shell with two 6.5 cancellous screws, and a +4 Ultrex polyethylene acetabular liner. ANESTHESIA: General. SURGEON: Christian Bautista MD. INVESTIGATOR CASH SHORTAGE: JEANNINE Hernandes, who was present throughout the case and whose assistance was necessary for successful completion of the case. BLOOD LOSS: Minimal. DRAINS: Hemovac x1. COMPLICATIONS: None. DESCRIPTION OF PROCEDURE: Patient was brought to the operative suite and placed in supine position. After successful administration of general anesthesia, patient was placed on the OSI table in the usual position for a right hip. The right hip was then prepped and draped in the usual sterile fashion. A longitudinal incision was made beginning 3 cm distal and 3 cm lateral to the anterior superior iliac spines and extending distally and slightly laterally 8 cm. Dissected sharply through the skin subcutaneous tissue down to the tensor fascia. The tensor fascia was incised and then dissected bluntly to the deep tensor fascia. The deep tensor fascia was incised and circumflex vessels electrocauterized, exposing the anterior capsule. A T-capsulotomy was performed, exposing the femoral neck. Femoral neck cut was made with an oscillating saw. The femoral head and the fractured neck were removed with a power corkscrew and rongeur. The labrum was resected. The acetabulum was serially reamed to 51 to accept a 52 cup. The 52 cup was driven into place in the proper amount inclination and anteversion and then two 6.5 cancellous screws were placed, 1 superiorly and 1 posterosuperiorly, and then the acetabular liner was locked onto the shell. Attention was then directed to the femur. It was externally rotated, extended, adducted, and elevated out of the wound with the hook on the OSI bed. The lateral neck was rongeured. The canal was serially broached to a size 8. A size 8 high offset, +8.5 was found to be excellent leg length offset, fit and fill of the stem, and stability of the hip. The trial was removed. The definitive stem was seated onto the femur and then the ceramic head was seated on the Lopez taper. The hip was again reduced and it was again found to be in excellent position. The anterior capsule was repaired with 0 V-Loc. The hip was copiously infiltrated with Exparel including the posterior capsule, anterior capsule, intermuscular, and subcutaneous tissue. A drain was placed deep to the tensor fascia and buried around the stem neck. The hip was copiously irrigated with normal saline containing irrigant and Vashe irrigation and then the tensor fascia was closed with 0 V-Loc. The skin edges were approximated with 2-0 Vicryl, 4-0 Monocryl, and a Prineo dressing. The patient tolerated the procedure well without complication. At the end the procedure, all counts were correct x2. The patient was transferred to the recovery room in stable condition. cc: Christian Bautista MD
[2018-10-17] MEDS ORDERED: ZOFRAN IV PRN (18:30)
[2018-10-17] MEDS ORDERED: ZOFRAN ODT PO PRN (18:30)
[2018-10-17] MEDS ORDERED: MORPHINE IV PRN ×2 (18:30)
[2018-10-17] MEDS ORDERED: MILK OF MAGNESIA PO PRN (18:30)
[2018-10-17] MEDS ORDERED: OXY IR PO PRN (18:30)
[2018-10-17] MEDS ORDERED: NS 1,000 ML IV SCH (18:30)
[2018-10-17 18:41] LABS: URINE SOURCE CATH
[2018-10-17 18:49] LABS: BILIRUBIN URINE NEGATIVE (NEGATIVE); BLOOD URINE NEGATIVE (NEGATIVE); COLOR YELLOW; GLUCOSE URINE NEGATIVE (NEGATIVE); KETONE URINE NEGATIVE (NEGATIVE); LEUKOCYTES URINE NEGATIVE (NEGATIVE); NITRITE URINE NEGATIVE (NEGATIVE); PROTEIN URINE NEGATIVE (NEGATIVE); SP GRAVITY URINE 1.007; TURBIDITY URINE CLEAR (CLEAR); UROBILINOGEN URINE NORMAL (NORMAL)
[2018-10-17 18:51] LABS: UR EPITHELIAL CELLS <10 /HPF (<10); URINE BACTERIA NEGATIVE /HPF; URINE RBC <10 /HPF (<10); URINE WBC <10 /HPF (<10)
[2018-10-17] MEDS: LOVENOX SUBQ SCH (19:27)
[2018-10-17] MEDS ORDERED: VENTOLIN HFA INH PRN (20:01)
[2018-10-17] MEDS ORDERED: AMBIEN PO PRN (20:26)
[2018-10-17] MEDS: TYLENOL PO SCH (22:31)
[2018-10-17] MEDS: ULTRAM PO SCH (22:32)
[2018-10-17] MEDS: COLACE PO SCH (22:33)
[2018-10-17] MEDS: LYRICA PO SCH (22:33)
[2018-10-17] MEDS: KEFZOL 1 GM/D5W 1 GM/50 ML IVPB IV SCH (22:34)
[2018-10-17] MEDS: CELEBREX PO SCH (22:35)
[2018-10-18] MEDS: ULTRAM PO SCH ×4 (03:57→22:10)
[2018-10-18] MEDS: TYLENOL PO SCH (03:58)
[2018-10-18] MEDS: MORPHINE IV PRN (04:46)
[2018-10-18 06:21] LABS: AGAP 6; BUN 9 mg/dL (8-22); CALCIUM 7.8 mg/dL (8.8-10.2); CHLORIDE 102 mmol/L (98-107); COSMO 269; CREATININE 0.6 mg/dL (0.7-1.2); ESTIMATED GFR > 60; GLUCOSE 106 mg/dL (70-104); POTASSIUM 4.2 mmol/L (3.5-5.1); SODIUM 135 mmol/L (136-145); TCO2 27 mmol/L (25-35)
[2018-10-18 07:04] LABS: BASO# 0.02 X1000 (0.0-0.2); BASO% 0.3 % (0.0-0.8); EOS# 0.14 X1000 (0.0-0.7); HEMATOCRIT 29.4 % (42.0-52.0); HEMOGLOBIN 9.2 g/dL (14.0-18.0); IMM GRAN# 0.02 X1000 (0.0-0.04); IMM GRAN% 0.3 % (0.0-0.5); LYMPH# 1.16 X1000 (1.2-3.4); LYMPH% 16.2 % (20.5-51.1); MCH 25.2 PG (27-31); MCHC 31.3 g/dL (33-37); MCV 80.5 FL (81-99); MONO# 0.87 X1000 (0.11-0.59); MONO% 12.1 % (1.7-9.3); MPV 10.3 FL (7.4-10.4); NEUT# 4.96 X1000 (1.4-6.5); NEUT% 69.1 % (42.2-75.2); PLT 218 X1000 (130-400); RBC 3.65 XMIL (4.7-6.1); RDW 20.4 % (11.5-14.5); WBC 7.17 X1000 (4.8-10.8)
[2018-10-18] MEDS: XARELTO PO SCH (07:05)
[2018-10-18] MEDS: SYMBICORT 80/4.5 MICROGM INHALER INH SCH ×2 (07:39→19:51)
[2018-10-18] MEDS: SPIRIVA INH SCH (07:39)
[2018-10-18] MEDS: DUONEB (A & A) INH SCH ×4 (07:39→19:51)
[2018-10-18] MEDS: DILAUDID IV PRN (07:47)
[2018-10-18] MEDS ORDERED: DECADRON IV ONE (09:00)
[2018-10-18] MEDS: KEFZOL 1 GM/D5W 1 GM/50 ML IVPB IV SCH (09:02)
[2018-10-18] MEDS: CELEBREX PO SCH ×2 (09:04→22:09)
[2018-10-18] MEDS: FERROUS SULFATE PO SCH (09:04)
[2018-10-18] MEDS: VITAMIN B-12 PO SCH (09:04)
[2018-10-18] MEDS: PERIDEX MT SCH ×2 (09:05→22:09)
[2018-10-18] MEDS: PEPCID PO SCH ×2 (09:05→09:14)
[2018-10-18] MEDS: MIRALAX PO SCH (09:06)
[2018-10-18] MEDS: LYRICA PO SCH ×2 (09:06→22:10)
[2018-10-18] MEDS: COLACE PO SCH ×2 (09:09→22:10)
[2018-10-18] MEDS: OXY IR PO PRN ×2 (12:28→18:09)
--- NOTE | 2018-10-18 15:05 | PROGRESS NOTE ---
DATE: 10/18/2018 SUBJECTIVE: Today, Mr. Taylor was seen sitting in a chair. He refers to be doing okay. No new complaint. OBJECTIVE: Vital Signs: Blood pressure is 113/53, pulse of 90, respiration is 24, temperature 97.5 degrees. The patient is saturating about 95%. General: Mr. Taylor is a 53-year-old male. He is in a chair. No distress. Mucosa is pink and moist. Anicteric. Acyanotic. Neck: Supple. Chest: Air entry is bilaterally reduced. There is prolonged expiratory phase of respiration with diffuse end expiratory wheezing. Cardiovascular: Regular rate and rhythm. Abdomen: Soft, nontender. Extremities: No pedal edema. Right lower extremity has a new surgical scar on the anterior hip which is well affronted. No draining. LABORATORY DATA: WBC is 7.17, hemoglobin is 9.2, platelet count of [id number]. Chemistry is also reviewed. Sodium is 135. Vitamin D is 16.6. ASSESSMENT: 1. Right femoral neck displaced fracture after mechanical fall. The patient is status post right hip arthroplasty. Today is day 1 postop. He just started physical therapy today and he seems to be doing pretty well. 2. Microcytic anemia, presumably due to iron deficiency. We will recheck the patient's iron stores and replenish accordingly. 3. History of chronic obstructive pulmonary disease with active tobacco abuse. The patient has mild bronchospasm. We will continue on p.r.n. nebulization and his home inhalers. 4. Vitamin D deficiency. We will continue replacement. 5. History of chronic hepatitis C and prior IV drug use. DISPOSITION: Mr. Taylor plans to return back to his friends. We are pending another session of physical therapy with him tomorrow and further recommendations from Ortho. If it is okay with Orthopedics, I think we will be able to discharge him tomorrow. Mr. Taylor is currently on Xarelto for post orthopedic surgery DVT prophylaxis. cc: Mario Alberto Shell MD
[2018-10-19] MEDS: OXY IR PO PRN (04:32)
[2018-10-19] MEDS: XARELTO PO SCH (05:42)
[2018-10-19] MEDS: ULTRAM PO SCH (05:42)
[2018-10-19 05:48] LABS: HEMATOCRIT 26.6 % (42.0-52.0); HEMOGLOBIN 8.5 g/dL (14.0-18.0)
[2018-10-19 06:21] LABS: FERRITIN 125 ng/mL (30-400)
[2018-10-19 06:35] LABS: MAGNESIUM 2.3 mg/dL (1.5-2.7); PHOSPHORUS 3.7 mg/dL (2.7-4.5)
[2018-10-19] MEDS: SPIRIVA INH SCH (07:15)
[2018-10-19] MEDS: DUONEB (A & A) INH SCH ×2 (07:15→11:10)
[2018-10-19] MEDS: SYMBICORT 80/4.5 MICROGM INHALER INH SCH (07:16)
[2018-10-19] MEDS ORDERED: VENOFER 300 MG in NS 250 ML IV ONE (08:40)
[2018-10-19] MEDS: MORPHINE IV PRN (08:55)
[2018-10-19] MEDS ORDERED: FOLIC ACID PO SCH (09:00)
[2018-10-19] MEDS: CELEBREX PO SCH (09:23)
[2018-10-19] MEDS: PERIDEX MT SCH (09:23)
[2018-10-19] MEDS: PEPCID PO SCH (09:23)
[2018-10-19] MEDS: COLACE PO SCH (09:24)
[2018-10-19] MEDS: MIRALAX PO SCH (09:24)
[2018-10-19] MEDS: LYRICA PO SCH (09:24)
[2018-10-19] MEDS: VITAMIN B-12 PO SCH (09:24)
[2018-10-19] MEDS: FERROUS SULFATE PO SCH (09:24)
[2018-10-19 13:02] VITALS: BP 125/69
--- NOTE | 2018-10-19 15:42 | DISCHARGE SUMMARY ---
ADMISSION DATE: 10/14/2018 DISCHARGE DATE: 10/19/2018 DISPOSITION: Home. FOLLOW-UP: Will be: 1. Dr. Moon. 2. Dr. Bautista. CONSULTATION DURING THIS ADMISSION: Orthopedics was consulted. Patient was seen by Dr. Ray. INVASIVE PROCEDURES DONE DURING THIS ADMISSION: Right total hip arthroplasty. ADMISSION DIAGNOSES: 1. Right femoral neck fracture. 2. Hypokalemia. 3. Chronic obstructive pulmonary disease. 4. Hepatitis C. DIAGNOSIS AT THE TIME OF DISCHARGE: 1. Right femoral neck displaced fracture after mechanical fall. Patient is status post right hip arthroplasty. 2. Microcytic anemia secondary to iron deficiency. 3. Chronic obstructive pulmonary disease with active ongoing tobacco use and abuse. Patient has been counseled. Patient also did have mild bronchospasm which resolved during the hospital course. 4. Vitamin D deficiency, replaced. 5. History of hepatitis C and prior IV drug use. DISCHARGE MEDICATIONS: 1. Symbicort inhaler. 2. Spiriva. 3. Iron sulfate 325 b.i.d. 4. Folic acid 1 mg b.i.d. 5. Pregabalin 75 mg b.i.d. 6. Milk of magnesia 30 mL p.o. q.6. 7. Cyanocobalamin 1000 mcg p.o. daily. 8. Xarelto 10 mg p.o. daily. 9. Colace 100 mg b.i.d. 10. Oxycodone 5 mg p.o. q.4. PRESENTING COMPLAINT: Fall. HISTORY OF PRESENTING COMPLAINT: Mr. Taylor is a 53-year-old gentleman who has a history of COPD, hepatitis C, who went on top of a tree to get a ball for kids who were playing. Unfortunately, the limb of the tree was dry and broke, and he subsequently fell, sustaining injury to his right hip. He was not immediately able to get up. He called for help. He was sent to [facility] where initial imaging studies revealed a femoral neck fracture. Because of lack of subspecialties in that facility, the patient was brought to [facility] for higher level of care. HOSPITAL COURSE: Mr. Taylor was admitted to the medical floor. Was seen by Orthopedics as well. A decision was made to intervene. A right hemiarthroplasty was done. The patient tolerated the procedure well. Postoperatively, he was able to participate with physical therapy. Unfortunately, Mr. Taylor does not have any insurance to be able to go to rehab. He has been able to walk more than 250 feet with physical therapy here in the hospital. We think he is okay for discharge, and he will follow up with his primary care doctor, Dr. Moon, and also Dr. Bautista. All the discharge instructions have been discussed with him. Mr. Taylor was also noted to have a severe iron deficiency. According to him, this is chronic. He was given an infusion of Venofer and was started on iron pills. He is also known to have a vitamin D and folate deficiency. We think this all stems from malnourishment and the fact that he abuses alcohol. He has been counseled. All the discharge instructions have been discussed with him. Time spent for discharge is 36 minutes. cc: Mario Alberto Shell MD
== END 2018-10-19 13:45 | disposition home health service (06) | DRG 470 ==
LOC: SUATTDRO 20:42 → 1N 20:42 → SUPCPDRO 20:42 → 4N 23:30
PROVIDERS: ATTEND Internal Medicine